=== PATIENT | female | born 1990 | race Caucasian/White ===

== ENCOUNTER 2018-05-24 10:55 | Day surgery (SDC) | payer MEDICAID ==
[2018-05-22 12:38] LABS: BASOPHILS % (AUTO) 0.5 % (0-1); EOSINOPHILS # (AUTO) 0.2 X10'3 (0-0.9); EOSINOPHILS % (AUTO) 2.5 % (0-6); LYMPHOCYTES # (AUTO) 1.9 X10'3 (1.1-4.8); LYMPHOCYTES % (AUTO) 27.5 % (21-51); MEAN CORPUSCULAR HGB CONC 32.6 % (33.0-36.5); MEAN CORPUSCULAR VOLUME 88.9 FL (78-98); MEAN PLATELET VOLUME 10.5 FL (7.4-10.4); MONOCYTES # (AUTO) 0.5 X10'3 (0-0.9); MONOCYTES % (AUTO) 7.1 % (2-12); NEUTROPHILS # (AUTO) 4.4 X10'3 (1.8-7.7); NEUTROPHILS % (AUTO) 62.4 % (42-75); PRE OP HEMATOCRIT 37.8 % (35.0-45.0); PRE OP HEMOGLOBIN 12.3 g/dL (12.0-16.0); PRE OP PLATELET COUNT 335 X10'3 (140-440); RED BLOOD COUNT 4.26 X10'6 (4.20-5.60); RED CELL DISTRIBUTION WIDTH 13.6 % (11.5-14.5)
[2018-05-22 12:48] LABS: CLARITY,URINE SLIGHTLY CLOUDY (Clear); COLOR,URINE RED (Yellow); GLUCOSE, URINE NEGATIVE (Neg); KETONES,URINE NEGATIVE (Neg); LEUKOCYTE ESTERASE ,URINE TRACE (Neg); NITRITES, URINE NEGATIVE (Neg); OCCULT BLOOD,URINE LARGE (Neg); PROTEIN,URINE NEGATIVE (Neg); UROBILINOGEN,URINE 0.2 E.U/dL (0.2-1.0)
[2018-05-22 12:53] LABS: LARGE PLATELETS MODERATE; PLATELET ESTIMATE NORMAL
[2018-05-22 12:54] LABS: UA COLLECTION TYPE CLN CATCH MIDSTREAM
[2018-05-22 12:55] LABS: ALBUMIN 4.1 G/DL (3.4-5.0); ALBUMIN/GLOBULIN RATIO 1.1 (1.1-1.5); ALKALINE PHOSPHATASE 154 IU/L (46-116); BLOOD UREA NITROGEN 9 MG/DL (7-18); BUN/CREATININE RATIO 13.4 (6.6-38.0); CHLORIDE 104 MMOL/L (99-107); CREATININE 0.67 MG/DL (0.40-0.90); PRE OP ALT 21 U/L (30-65); PRE OP ANION GAP 10 (8-16); PRE OP AST 18 U/L (10-37); PRE OP BILIRUB, TOTAL 0.3 MG/DL (0.0-1.0); PRE OP GLUCOSE 86 MG/DL (70-104); PRE OP POTASSIUM 3.8 MMOL/L (3.4-5.1); PRE OP SODIUM 142 MMOL/L (135-145); TOTAL CARBON DIOXIDE 27.8 MMOL/L (24-32); TOTAL PROTEIN 7.7 G/DL (6.4-8.2); eGFR > 90 ML/MIN
[2018-05-22 12:57] LABS: RBC,URINE TNTC /HPF (0-2)
[2018-05-22 13:01] LABS: BACTERIA,URINE FEW /HPF (Neg); SQUAMOUS EPITHELIAL CELL,UR MODERATE /LPF (FEW)
[2018-05-22 13:02] LABS: WBC,URINE 20-30 /HPF (0-4)
[2018-05-22 13:03] LABS: TRANSITIONAL EPI CELLS,URINE FEW /HPF
[2018-05-22 13:12] LABS: HCG SERUM QL NEGATIVE
[~2018-05-24] VITALS: Ht 157.5 cm; Wt 79.4 kg
[2018-05-24] VITALS (8 sets, daily range): BP systolic 104–129; BP diastolic 64–81
[~2018-05-24 10:55] MED LIST: PREN1TAB75 PO; cefoxitin sod inj 2,000 MG in dextrose 5%-water 100 ML IV ONE; famotidine 20mg tablet PO ONE; ringers solution, lacted 1,000 ML IV SCH
[2018-05-24] MEDS ORDERED: LIDOcaine 1% (10mg/ml) 2ml vial ONE (12:05)
[2018-05-24] MEDS ORDERED: ringers solution, lacted 1,000 ML IV SCH (12:29)
[2018-05-24] MEDS ORDERED: meperidine/PF 25mg/ml syringe IV PRN ×3 (12:30)
[2018-05-24] MEDS ORDERED: morphine 4 MG/ML inj SYRINge IV PRN ×2 (12:30)
[2018-05-24] MEDS ORDERED: proCHLORperazine 10 MG/2 ml inj IV PRN (12:30)
[2018-05-24] MEDS ORDERED: ondansetron/PF 4mg/2ml inj IV PRN (12:30)
[2018-05-24] MEDS ORDERED: BUPIVAcaine/PF 2.5mg/ml (0.25%) 10ml vial ONE (13:10)
[2018-05-24] MEDS ORDERED: epiNEPHrine 1 mg/ml inj ONE (13:17)
[2018-05-24] MEDS ORDERED: midazolam 2 mg/2 ml injection ONE (13:57)
[2018-05-24] MEDS ORDERED: fentaNYL/PF 50MCG/1 ML 2ML syringe ONE (13:57)
[2018-05-24] MEDS ORDERED: propofol inj 20 ML IV ONE (13:58)
[2018-05-24] MEDS ORDERED: rocuronium 10mg/ml inj IV ONE (14:00)
[2018-05-24] MEDS ORDERED: ondansetron/PF 4mg/2ml inj ONE (14:26)
[2018-05-24] MEDS ORDERED: dexamethasone sod phosphate 4mg/ml inj. ONE (14:27)
[2018-05-24] MEDS ORDERED: neostigmine methylsulfate 1 MG/ML 10ml vial ONE (14:51)
[2018-05-24] MEDS ORDERED: glycopyrrolate 0.2mg/ml inj ONE (14:51)
== END 2018-05-24 16:00 | disposition home or self-care (01) ==
LOC: PAS 10:55
PROVIDERS: ATTEND Obstetrics & Gynecology Obstetrics
DX: Z30.2 Encounter for sterilization (principal); Z79.1 Long term (current) use of non-steroidal anti-inflammatories (NSAID); Z79.891 Long term (current) use of opiate analgesic; Z98.890 Other specified postprocedural states; Z79.899 Other long term (current) drug therapy
CPT/HCPCS: 36415; 58671; 80053; 81001; 84703; 85025; 86885; 86900; 86901; 87088; A4264; J0694; J1100; J2250; J2405; J2704; J2710; J3010; J3490; J7060; A7000; J0171; J7120